=== PATIENT | male | born 1990 | race Caucasian/White ===

== ENCOUNTER 2019-04-03 16:31 | Emergency (ER) | payer SELFPAY ==
[~2019-04-03] VITALS: Ht 172.7 cm; Wt 70.3 kg
--- NOTE | 2019-04-03 16:35 | NUR ---
PT A/OX4, BIB [facility], FOR ETOH INTOXICATION. PER INDIVIDUALIZED EDUCATION PLAN AIDE'S REPORT, PT CALLED [address] FOR "SHAKING". PT REPORTS HE HAS BEEN DRINKING "HEAVILY FOR THE LAST 3 DAYS" AND HIS LAST DRINK WAS AROUND 1200 TODAY. PT PRESENTS W/ SMELL OF ETOH ON BREATH AND HAND TREMORS OBSERVED. PT C/O C/P THAT STARTED "EARLIER TODAY". PT IS TACHYCARDIC, BUT DOES NOT APPEAR TO BE IN ANY APPARENT DISTRESS. ER MD AT BEDSIDE FOR MSE.
[2019-04-03] MEDS ORDERED: ONDANSETRON 4 MG/2 ML VIAL IV ONE (16:45)
[2019-04-03] MEDS ORDERED: IV NORMAL SALINE 1000 ML BAG IV ONE (16:45)
[2019-04-03 16:56] LABS: BASOPHILS # (AUTO) 0.1 K/uL (0.0-8.0); EOSINOPHILS % (AUTO) 0.5 % (0.0-7.0); HEMOGLOBIN 16.5 g/dL (12.5-16.3); LYMPHOCYTES # (AUTO) 1.4 K/uL (20.0-40.0); LYMPHOCYTES % (AUTO) 27.3 % (20.5-51.5); MEAN CORPUSCULAR HEMOGLOBIN 30.7 uug (23.8-33.4); MEAN CORPUSCULAR HGB CONC 34 g/dL (32.5-36.3); MEAN CORPUSCULAR VOLUME 89.5 fL (73.0-96.2); MONOCYTES # (AUTO) 0.5 K/uL (2.0-10.0); NEUTROPHILS # (AUTO) 3.1 K/uL (1.8-8.9); NEUTROPHILS % (AUTO) 61.2 % (38.5-71.5); PLATELET COUNT (AUTO) 266 K/uL (152-348); RED BLOOD CELL COUNT(AUTO) 5.36 MIL/uL (4.06-5.63); WHITE BLOOD COUNT (AUTO) 5.1 K/uL (3.6-10.2)
[2019-04-03] MEDS ORDERED: ONDANSETRON 4 MG/2 ML VIAL ONE (16:56)
[2019-04-03 17:04] LABS: POTASSIUM 3.5 mmol/L (3.5-5.1)
[2019-04-03 17:28] LABS: BILIRUBIN,DIRECT 0.2 mg/dL (0.0-0.2); BILIRUBIN,TOTAL 0.7 mg/dL (0.2-1.0); TOTAL PROTEIN, SERUM 8.4 g/dL (6.4-8.2)
[2019-04-03] MEDS ORDERED: LORAZEPAM 0.5 MG TABLET PO ONE (17:30)
[2019-04-03] MEDS ORDERED: LORAZEPAM 1 MG TABLET ONE (17:33)
--- NOTE | 2019-04-03 19:04 | NUR ---
SHIFT REPORT GIVEN TO SARAH Jenkins RN.
--- NOTE | 2019-04-03 20:00 | NUR ---
PATIENT ASLEEP AT THIS TIME, RESPIRATIONS EVEN AND UNLABORED. WILL MONITOR.
--- NOTE | 2019-04-03 21:00 | NUR ---
PATIENT IS AROUSABLE, AWAKE AND ALERT, DENIES ANY PAIN, SOB AT THIS TIME. WILL MONITOR.
[2019-04-03] MEDS ORDERED: CHLORDIAZEPOXIDE HCL 25 MG CAPSULE PO ONE (22:00)
[2019-04-03] MEDS ORDERED: CHLORDIAZEPOXIDE HCL 25 MG CAPSULE ONE (22:04)
--- NOTE | 2019-04-03 22:05 | NUR ---
Patient discharged to home in stable conditon. Written and verbal after care instructions given. Patient verbalizes understanding of instructions. PATIENT LEFT WITH STABLE GAIT.
[2019-04-03 22:18] VITALS: BP 119/77
== END 2019-04-03 22:22 | disposition home or self-care (01) ==
LOC: ER 16:33
DX: F10.239 Alcohol dependence with withdrawal, unspecified (principal); R07.89 Other chest pain; Y90.8 Blood alcohol level of 240 mg/100 ml or more
CPT/HCPCS: 36415; 71045; 80048; 80076; 83690; 84484 ×2; 85025; 93005; 96374; 99284; G0480; J2405; 70030-TC; A4663; J7030